=== PATIENT | male | born 1970 | race Asian ===

== ENCOUNTER 2024-04-07 14:39 | Emergency (ER) | payer SELFPAY ==
[~2024-04-07] VITALS: Ht 165.1 cm; Wt 70.0 kg
[2024-04-07 14:44] VITALS: O2SAT 100
[2024-04-07 15:43] LABS: BASOPHILS % 0.3 % (0.0-2.0); EOSINOPHILS % 0.7 % (0.0-5.0); HEMOGLOBIN. 15.1 g/dL (14.0-18.0); LYMPHOCYTES % 20.9 % (20.0-50.0); MEAN CORPUSCULAR HEMOGLOBIN 30.8 pg (28.0-32.0); MEAN CORPUSCULAR HGB CONC 33.4 g/dL (31.0-37.0); MEAN CORPUSCULAR VOLUME 92.1 fL (80.0-94.0); MEAN PLATELET VOLUME 7.7 fl (7.4-10.4); MONOCYTES % 4.3 % (2.0-8.0); NEUTROPHILS % 73.8 % (40.0-76.0); PLATELET 252 x1000/uL (130-400); RED BLOOD CELL COUNT 4.89 mill/uL (4.7-6.1); RED CELL DISTRIBUTION WIDTH 12.7 % (11.6-14.6); WHITE BLOOD COUNT 6.2 x1000/uL (4.5-11.0)
[2024-04-07 15:47] LABS: CHLORIDE 108 mEq/L (98-107); POTASSIUM 4.2 mEq/L (3.5-5.1); SODIUM 140 mEq/L (136-145)
[2024-04-07 15:48] LABS: CALCIUM 10.1 mg/dL (8.7-10.4); CARBON DIOXIDE 27 mEq/L (21-32)
[2024-04-07 15:53] LABS: GLUCOSE 118 mg/dL (70-105); UREA NITROGEN BLOOD 13 mg/dL (9-23)
[2024-04-07 15:54] LABS: TROPONIN I HIGH SENSITIVITY 11 ng/L (3.0-53)
[2024-04-07 16:50] VITALS: BP 182/111; PULSE 82; RESP 16; TEMP 36.78072; O2SAT 100
== END 2024-04-07 16:50 | disposition home or self-care (01) ==
LOC: ER 15:31
DX: R42 Dizziness and giddiness (principal); I10 Essential (primary) hypertension
CPT/HCPCS: 36415; 80048; 84484; 85025; 99284